=== PATIENT | female | born 1990 | race Two or more races ===

== ENCOUNTER 2017-04-07 12:58 | Day surgery (SDC) | payer OTHER ==
[~2017-04-07] VITALS: Ht 160 cm; Wt 54.1 kg
[2017-04-07 15:06] VITALS: Ht 160 cm; Wt 54.1 kg
[2017-04-07] MEDS ORDERED: METO10TA92 PO (15:18)
[2017-04-07] MEDS ORDERED: PANT40TA3 PO (15:18)
[2017-04-07] MEDS ORDERED: BIRTH CONTROL (15:18)
[2017-04-07 16:06] VITALS: BP 122/75; PULSE 71; RESP 23
[2017-04-07] MEDS ORDERED: MIDAZOLAM 1 MG/ML 2 ML INJ ONE ×3 (17:01)
[2017-04-07] MEDS ORDERED: FENTAnyl 50 MCG/ML VIAL ONE (17:02)
--- NOTE | 2017-04-07 17:19 | OPPN ---
Date/Time of Note Date/Time of Note DATE: 04/07/17 TIME: 16:50 Proc Note GI Procedure Date 04/07/17 Indication: other (Reflux Symptoms) Pre-procedure Diagnosis Reflux symptoms Post-procedure Diagnosis Impression: Mild distal esophagitis Moderate gastritis. Rule out H pylori. Rule out H. pylori infection Otherwise normal EGD Plan: PPI therapy Review pathology Follow-up as previously scheduled . 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 pylori infection Biopsy 2: Duodenum rule out celiac disease Grafts/Implants none Tubes/Drains none Complication(s) none Disposition: home Procedure Description Preoperative Diagnosis: After informed consent, with the patient/relatives understanding the procedure, its indications, potential risks and complications, including but not limited to : allergic reaction, bleeding, perforation or infection, and after all pertinent questions were answered to the patients satisfaction, the patient/ relatives signed witnessed informed consent. Following this, premedication was administered slowly IV push under careful cardiovascular and respiratory monitoring with pulse oximetry, automatic blood pressure, and cafeteria monitor. Once the sedative effect was achieved the patient was place in the left lateral decubitus, the panendoscope was introduced and advanced under visual control. Careful examination of the upper gastrointestinal tract, both on insertion as well as withdrawal of the instrument disclosing the following findings: ESOPHAGUS: the mucosa of the entire esophagus was carefully examined and showed the following findings: There is mild erythema of the mucosa at the e.g. junction. Otherwise the mucosa appears within normal limits. There is no evidence of varices, neoplasm , or stricture. No Hiatal Hernia identified. STOMACH: Upon entrance to the stomach air was insufflated, the gastric mejia distended normally. The mucosa of the fundus, body and antrum of the stomach was carefully examined both head-on and on retroflexion, and showed the following findings: There is mild erythema of the mucosa of the body and antrum the stomach. Biopsies were obtained to rule out H. pylori infection. Otherwise the mucosa appears within normal limits with no abnormalities. There is no evidence of ulcers or neoplasm. PYLORUS: The pylorus was carefully examined and showed the following findings: the pylorus appears patent and within normal limits, with no evidence of gastric outlet obstruction. DUODENUM: The duodenal mucosa was carefully examined in the duodenal bulb as well as the second portion of the duodenum and showed the following findings: the mucosa appears unremarkable with no evidence of duodenitis, ulcer or neoplasm. Random biopsies were obtained to rule out celiac disease. Copies To: CC: PRASANTH BAILEY MD, MORDO MD Apr 07, 2017 17:19
== END 2017-04-07 17:21 | disposition home or self-care (01) ==
LOC: GIL 12:58
PROVIDERS: ATTEND Internal Medicine Gastroenterology
DX: K29.50 Unspecified chronic gastritis without bleeding (principal); K20.8 Other esophagitis
CPT/HCPCS: 43239; 84703; 88305; 88312; J2250; J3010